=== PATIENT | male | born 1970 | race Caucasian/White ===

== ENCOUNTER → 2016-11-26 | Outpatient (CLI) | payer OTHER ==
[~2016-11-26] MED LIST: AMBESOL BU; AMOX500T3 PO; AZIT250T PO; CYCL10TA6 PO; DIVA250T PO; OXYC1TAB3 PO; TRC145 PO
[2016-11-26 12:48] LABS: BASO % 0.4 %; BASO ABS # 0.02 K/uL (0-0.2); COMPLETE YES; EOS % 2.2 %; HEMATOCRIT 44.9 % (42-52); IG% 0.4 %; LYMPH % 35.4 %; LYMPH ABS # 1.78 K/uL (1.2-3.4); MEAN CELL VOLUME 87.7 fL (80-100); MEAN CORPUSCULAR HEMOGLOBIN 31.1 pg (25-34); MEAN CORPUSCULAR HGB CONC 35.4 g/dl (32-36); MEAN PLATELET VOLUME 9.7 fL (7.4-10.4); MONO % 8.3 %; NEUT % 53.3 %; PLATELET COUNT 245 K/uL (130-400); RED BLOOD COUNT 5.12 M/uL (4.7-6.1); WHITE BLOOD COUNT 5.03 K/uL (4.8-10.8)
[2016-11-26 13:08] LABS: ALT/SGPT 49 U/L (12-78); BLOOD UREA NITROGEN 12 mg/dl (7-18); BUN/CREATININE RATIO 12.1 (10-20); CARBON DIOXIDE 22 mmol/L (21-32); CHLORIDE 108 mmol/L (98-107); CHOLESTEROL 191 mg/dl (0-200); CREATININE 0.99 mg/dl (0.60-1.40); GLUCOSE 83 mg/dl (70-99); POTASSIUM 4.1 mmol/L (3.5-5.1); SODIUM 140 mmol/L (136-145)
[2016-11-26 13:19] LABS: ALB/GLOB RATIO 1.4 (0.9-2); ALKALINE PHOSPHATASE 67 U/L (45-117); AST/SGOT 21 U/L (15-37); CHOLESTEROL/HDL RATIO 5.6; HDL CHOLESTEROL 34 mg/dl; LDL CHOLESTEROL CALCULATED 98 mg/dl; TRIGLYCERIDES 295 mg/dl (0-150); VERY LOW DENSITY LIPOPROT CALC 59 mg/dl
== END | disposition home or self-care (01) ==
LOC: C.LABPVFM 10:20
PROVIDERS: ATTEND Psychiatry & Neurology Psychiatry
DX: Z79.899 Other long term (current) drug therapy (principal)

== ENCOUNTER → 2017-04-02 | Outpatient (CLI) | payer OTHER ==
[~2017-04-02] MED LIST changes: -AZIT250T PO; -CYCL10TA6 PO
[2017-04-02 13:16] LABS: BASO % 0.3 %; BASO ABS # 0.02 K/uL (0-0.2); COMPLETE YES; EOS % 0.5 %; HEMATOCRIT 43.1 % (42-52); IG% 0.2 %; LYMPH % 29.1 %; LYMPH ABS # 1.69 K/uL (1.2-3.4); MEAN CORPUSCULAR HEMOGLOBIN 31.4 pg (25-34); MEAN CORPUSCULAR HGB CONC 35.3 g/dl (32-36); MEAN PLATELET VOLUME 9.6 fL (7.4-10.4); MONO % 8.3 %; NEUT % 61.6 %; PLATELET COUNT 259 K/uL (130-400); RED BLOOD COUNT 4.84 M/uL (4.7-6.1); WHITE BLOOD COUNT 5.81 K/uL (4.8-10.8)
[2017-04-02 18:26] LABS: BLOOD UREA NITROGEN 15 mg/dl (7-18); GLUCOSE 82 mg/dl (70-99)
[2017-04-02 18:27] LABS: ALT/SGPT 56 U/L (12-78); AST/SGOT 25 U/L (15-37); BUN/CREATININE RATIO 12.8 (10-20); CALCIUM 8.6 mg/dl (8.5-10.1); CARBON DIOXIDE 25 mmol/L (21-32); CHLORIDE 110 mmol/L (98-107); POTASSIUM 3.8 mmol/L (3.5-5.1); SODIUM 143 mmol/L (136-145)
[2017-04-02 18:39] LABS: ALB/GLOB RATIO 1.4 (0.9-2); ALKALINE PHOSPHATASE 75 U/L (45-117); CHOLESTEROL 184 mg/dl (0-200); CHOLESTEROL/HDL RATIO 7.1; HDL CHOLESTEROL 26 mg/dl; LDL CHOLESTEROL CALCULATED 122 mg/dl; TRIGLYCERIDES 179 mg/dl (0-150); VERY LOW DENSITY LIPOPROT CALC 36 mg/dl
== END | disposition home or self-care (01) ==
LOC: C.LABPVFM 11:30
PROVIDERS: ATTEND Psychiatry & Neurology Geriatric Psychiatry
DX: Z79.899 Other long term (current) drug therapy (principal)

== ENCOUNTER → 2017-05-13 | Outpatient (CLI) | payer OTHER ==
--- NOTE | 2017-05-13 13:40 | DIAGNOSTIC IMAGING REPORT ---
RIGHT KNEE 1 OR 2 VIEWS ROUTINE CLINICAL HISTORY: 46 years-old Male presenting with RIGHT KNEE PAIN, no history of injury. TECHNIQUE: Frontal and lateral views of the right knee were obtained. COMPARISON: None. FINDINGS: No acute fracture or malalignment. No large effusion. No radiopaque foreign body. Minimal osteophytosis at the superior patellofemoral reticulation suggested. IMPRESSION: No significant abnormality of the right knee. Electronically signed by: Brayan Urias M.D. 05/13/2017 1:38 PM Dictated Date/Time: 05/13/2017 1:37 PM
== END | disposition home or self-care (01) ==
LOC: C.RADPV 13:19
PROVIDERS: ATTEND Nurse Practitioner
DX: M25.561 Pain in right knee (principal)

== ENCOUNTER 2017-07-14 21:12 | Emergency (ER) | payer OTHER ==
[~2017-07-14] VITALS: Ht 176.5 cm; Wt 106.1 kg
[~2017-07-14 21:12] MED LIST changes: -AMBESOL BU; -AMOX500T3 PO
[2017-07-14 21:14] VITALS: TEMP 36.6; Ht 176.5 cm; Wt 106.1 kg
[2017-07-14] MEDS ORDERED: AMBESOL BU (21:25)
[2017-07-14] MEDS ORDERED: AMOX500T3 PO (21:40)
--- NOTE | 2017-07-14 21:41 | EMERGENCY ROOM VISIT NOTE ---
ED Visit Note First contact with patient: 21:19 CHIEF COMPLAINT: Toothache HISTORY OF PRESENT ILLNESS: This 46-year-old male patient presented to the emergency department ambulatory complaining of right upper dental pain. The patient states that he has had pain for the past 3-4 days. He states the pain radiates into his jaw and the rest of his face. He rates the discomfort a 10/ 10. He reports he has been using a topical numbing agent, but has not taken any Tylenol or ibuprofen because he is on probation and is unsure what he is allowed to take. He does not have a dentist. Denies facial swelling or fever. The patient denies any discharge from the mouth. REVIEW OF SYSTEMS: A 6 system review of systems was completed with positives and pertinent negatives listed in the HPI. ALLERGIES: No known drug allergies MEDICATIONS: See med list PMH: No significant past medical history. SOCIAL HISTORY: The patient lives locally with a roommate. Nonsmoker, denies alcohol use. PHYSICAL EXAM: Vitals are noted on the nurse's note and reviewed by myself. Vital signs stable. Temperature 36.6C orally. GENERAL: This is a 46-year-old male, in no acute distress, nondiaphoretic, well-developed well-nourished. Mouth: The remaining right upper molar tooth is very carious and the gum is swollen and tender around it, without any discharge or signs of an abscess. The remainder of the pharynx and tonsils are without erythema, edema, or exudate. The airway is patent. There is no facial swelling, cervical or submandibular lymphadenopathy. The patient appears uncomfortable and in pain. The patient has overall poor dental hygiene. EARS: External auditory canals clear, tympanic membranes pearly kelly without erythema or effusion bilaterally. ED COURSE: The patient was evaluated as above. He will be placed on amoxicillin for dental infection. He was advised to alternate Tylenol and ibuprofen for pain. The patient was informed that he will need to follow-up with a dentist regarding these issues for definitive care. He verbalized understanding of my assessment and treatment plan and was discharged home in good condition. DIAGNOSIS: Dental infection Problem List Medical Problems: (1) Asthma Status: Chronic (2) Attention deficit hyperactivity disorder Status: Chronic (3) Back pain Status: Resolved (4) Back pain Status: Resolved (5) Bipolar disorder Status: Chronic (6) Contusion of hand, right Status: Chronic (7) Cough Status: Resolved (8) Cough Status: Resolved (9) Fall Status: Resolved (10) Foot fracture, right Status: Resolved (11) Foot fracture, right Status: Resolved (12) Foot fracture, right Status: Resolved (13) Groin strain Status: Resolved (14) Head injury Status: Resolved (15) Neck pain Status: Resolved (16) Rhomboid muscle strain Status: Resolved (17) Status post fall Status: Resolved (18) Trapezius strain Status: Resolved (19) Upper respiratory infection Status: Resolved Current/Historical Medications Scheduled Divalproex Sodium (Depakote Er), 500 MG PO QPM Divalproex Sodium (Depakote Er), 250 MG PO QAM Fenofibrate (Fenofibrate), 145 MG PO DAILY [Ambesol], 1 APPLN BU PRN Allergies Coded Allergies: No Known Allergies (Verified , 02/13/17) Vital Signs Date Time Temp Pulse Resp B/P (MAP) Pulse Ox O2 Delivery O2 Flow Rate FiO2 07/14/17 21:14 36.6 61 18 132/79 96 Room Air Departure Information Impression Primary Impression: Dentalgia Dispostion Home / Self-Care Condition GOOD Prescriptions Amoxicillin (AMOXIL) 500 Mg Tab 500 MG PO QID for 10 Days, #40 TAB Prov: Li Gomez ., SARAHY 07/14/17 Referrals Ernestina De La Rosa C.R.N.P (PCP) Patient Instructions My [facility] Additional Instructions You have been treated in the Emergency Department for Dental Pain. You were prescribed amoxicillin to be taken 4 times daily as prescribed. This is an antibiotic. All antibiotics have the potential to cause diarrhea. Stop this medication and contact a medical provider if you were to develop any significant adverse side effects including: wheezing, shortness of breath, passing out, vomiting, or a diffuse rash. Always take antibiotics as directed and COMPLETE the ENTIRE course regardless of the improvement of your symptoms. For pain control, you can use the following [id number] medicines (if >12 yo): - Regular strength (325mg/tab) Tylenol (acetaminophen) 2 tabs every 4-6 hours as needed. Do not exceed 12 tablets in a 24 hour period. Avoid taking more than 4 grams (4000 mg) of Tylenol per day. This includes any other sources of acetaminophen you may take on a regular basis. - Regular strength (200 mg/tab) Advil (ibuprofen) up to 4 tabs every 6 hours as needed. Do not exceed a dose of 3200 mg per day. You may alternate Tylenol and ibuprofen for better pain control. Refrain from smoking cigarettes or using chewing tobacco until you have been evaluated by your dentist. Keeping beverages lukewarm and consuming soft foods can decrease your pain. Warm compresses over the affected area may offer some relief. You MUST seek evaluation of your dental pain by a dentist following your visit to the Emergency Department. The Emergency Department is not capable of treating dental issues long-term. You should call your dentist as soon as possible to make an appointment for evaluation of your dental pain. Follow up with Dr. Oleary [phone] [address] [facility] [place] Return to the emergency department if you develop the following symptoms despite treatment course outlined above: fever, intractable pain, increased redness, swelling, or purulent discharge.
[2017-07-14] MEDS ORDERED: AMOXICILLIN HOME PACK 250 MG/TAB PO ONE (21:45)
[2017-07-14 21:58] VITALS: BP 122/69; PULSE 56; O2SAT 96
== END 2017-07-14 21:59 | disposition home or self-care (01) ==
LOC: C.EDB 21:12 → C.EDD 21:59
DX: K04.7 Periapical abscess without sinus (principal); J45.909 Unspecified asthma, uncomplicated; F90.9 Attention-deficit hyperactivity disorder, unspecified type

== ENCOUNTER 2017-09-28 17:42 | Emergency (ER) | payer OTHER ==
[~2017-09-28] VITALS: Ht 177.8 cm; Wt 115.0 kg
[~2017-09-28 17:42] MED LIST changes: +AMBESOL BU; +AMOX500T3 PO; -OXYC1TAB3 PO
[2017-09-28 17:45] VITALS: TEMP 36.7; Ht 177.8 cm; Wt 115.0 kg
[2017-09-28] MEDS ORDERED: IBUPROFEN 600 MG TAB PO STA (17:51)
[2017-09-28] MEDS ORDERED: OXYCODONE HCL IR 5 MG TAB (IMMEDIATE RELEASE) PO STA (17:51)
--- NOTE | 2017-09-28 18:37 | DIAGNOSTIC IMAGING REPORT ---
RIGHT HAND 3 VIEWS HISTORY: R ulnar hand pain COMPARISON: None. FINDINGS: Soft tissue swelling seen throughout the hand and fifth finger. Nondisplaced fracture at the proximal shaft of the proximal phalanx of the right fifth digit. Soft tissues are unremarkable. No radiopaque foreign bodies. No dislocation. IMPRESSION: Nondisplaced fracture at the right fifth proximal phalanx. Electronically signed by: Silvio Gregory M.D. 09/28/2017 6:35 PM Dictated Date/Time: 09/28/2017 6:34 PM
[2017-09-28] MEDS ORDERED: OXYC1TAB3 PO (19:06)
--- NOTE | 2017-09-28 19:10 | EMERGENCY ROOM VISIT NOTE ---
History First contact with patient: 17:47 Chief Complaint: HAND PAIN/INJURY Stated Complaint: KICKED BY A HORSE IN THE R HAND History of Present Illness The patient is a 46 year old male who presents to the Emergency Room with complaints of right hand pain after being kicked by a horse this morning around 11:30 AM. The patient believes that he attempted to raise his arm to avoid being kicked in the face. He denies any pain extending into the wrist or forearm. He denies any paresthesias or numbness of the fingers. He rates his discomfort a 10 out of 10. He has not taken any medications for the pain. The patient is [id number]. Review of Systems 10 system review was performed and was negative except for pertinent positives and negatives as indicated in history of present illness Past Medical/Surgical History Medical Problems: (1) Asthma (2) Attention deficit hyperactivity disorder (3) Back pain (4) Back pain (5) Bipolar disorder (6) Contusion of hand, right (7) Cough (8) Cough (9) Fall (10) Foot fracture, right (11) Foot fracture, right (12) Foot fracture, right (13) Groin strain (14) Head injury (15) Neck pain (16) Rhomboid muscle strain (17) Status post fall (18) Trapezius strain (19) Upper respiratory infection Family History Diabetes mellitus Hypertension Social History Smoking Status: Former Smoker Alcohol Use: none Drug Use: none Marital Status: Housing Status: lives with friends Occupation Status: employed Current/Historical Medications Scheduled Divalproex Sodium (Depakote Er), 500 MG PO QPM Divalproex Sodium (Depakote Er), 250 MG PO QAM Fenofibrate (Fenofibrate), 145 MG PO DAILY [Ambesol], 1 APPLN BU PRN Scheduled PRN Oxycodone Ir (Roxicodone Ir), 1 TAB PO Q6H PRN for Pain Physical Exam Vital Signs Date Time Temp Pulse Resp B/P (MAP) Pulse Ox O2 Delivery O2 Flow Rate FiO2 17 17:45 36.7 61 18 128/75 95 Room Air Physical Exam CONSTITUTIONAL: Healthy and well nourished. Alert and oriented X 3 with positive affect. Patient does not appear in any acute distress on exam. HEENT: Normocephalic, atraumatic. Pupils equal, round and reactive. NECK: Full active range of motion without discomfort. MUSCULOSKELETAL: Examination of the right hand shows notable edema of the ulnar aspect of the hand. He is tender through the entire fifth metacarpal, and distal fourth metacarpal region. No tenderness to palpation of the wrist region , first through third metacarpals or focal phalangeal findings. Capillary refill of the fingers is less than 2 seconds. INTEGUMENTARY: No rash or other significant dermatologic conditions noted. NEUROLOGIC: Right hand and fingers are sensory intact. Medical Decision & Procedures ER Provider Diagnostic Interpretation: My interpretation of right hand x-rays shows a nondisplaced fracture of the fifth proximal phalanx. Radiologist report is as follows: RIGHT HAND 3 VIEWS HISTORY: R ulnar hand pain COMPARISON: None. FINDINGS: Soft tissue swelling seen throughout the hand and fifth finger. Nondisplaced fracture at the proximal shaft of the proximal phalanx of the right fifth digit. Soft tissues are unremarkable. No radiopaque foreign bodies. No dislocation. IMPRESSION: Nondisplaced fracture at the right fifth proximal phalanx. Medications Administered Medications (Trade) Dose Ordered Sig/Sarabjit Route Start Time Stop Time Status Last Admin Dose Admin Oxycodone HCl (Roxicodone Immediate Rel Tab) 5 mg NOW STAT PO 09/28/17 17:51 09/28/17 17:54 DC 09/28/17 18:21 5 MG Ibuprofen (Motrin Tab) 600 mg NOW STAT PO 09/28/17 17:51 09/28/17 17:54 DC 09/28/17 18:20 600 MG ED Course Patient history and physical exam were performed. Nurse's notes were reviewed. Vital signs were reviewed and were normal. The patient was administered OxyIR 5 mg and ibuprofen 600 mg for pain. An ice pack was also applied. X- rays of the right hand confirms a nondisplaced fracture at the base of the proximal phalanx of the fifth finger. An Ortho-Glass splint was applied. Neurovascular check after splint placement was normal. The patient has followed with [facility] in the past, and will call them on Saturday for an appointment. The patient was encouraged to ice and elevate the hand for swelling and pain. Ibuprofen and Tylenol in alternating fashion for baseline pain relief. The patient was provided a prescription for OxyIR 5 mg, dispensed #10 with no refills as needed for breakthrough pain. The patient was happy with plan of care, voiced understanding of all discharge instructions, and rated his pain a 3 out of 10 at the time of discharge. Medical Decision [place] Drug Monitoring Program Search Results: patient reviewed within database, no issues identified Medication Reconcilliation Current Medication List: was personally reviewed by me Blood Pressure Screening Patient's blood pressure: Normal blood pressure Impression Primary Impression: Closed fracture of phalanx of right little finger Departure Information Prescriptions Oxycodone Ir (Roxicodone Ir) 5 Mg Tab 1 TAB PO Q6H Y for Pain, #10 TAB For Initial Treatment Prov: Maximo Aranda PA 09/28/17 Referrals Ernestina De La Rosa C.R.N.P (PCP) Patient Instructions My [facility] Problem Qualifiers Primary Impression: Closed fracture of phalanx of right little finger Encounter type: initial encounter Phalanx: proximal Fracture alignment: nondisplaced Qualified Codes: S62.646A - Nondisplaced fracture of proximal phalanx of right little finger, initial encounter for closed fracture
[2017-09-28 19:30] VITALS: BP 138/87; PULSE 85; O2SAT 96
== END 2017-09-28 19:31 | disposition home or self-care (01) ==
LOC: C.EDB 17:43 → C.EDD 19:31
DX: S62.646A Nondisplaced fracture of proximal phalanx of right little finger, initial encounter for closed fracture (principal); W55.19XA Other contact with horse, initial encounter; F90.9 Attention-deficit hyperactivity disorder, unspecified type; F31.9 Bipolar disorder, unspecified; Z87.891 Personal history of nicotine dependence; Z83.3 Family history of diabetes mellitus; Z83.49 Family history of other endocrine, nutritional and metabolic diseases